=== PATIENT | male | born 1955 | race Caucasian/White ===

== ENCOUNTER 2017-01-15 15:52 | Inpatient (IN) | payer OTHER ==
[~2017-01-15] VITALS: Ht 180.3 cm; Wt 115.6 kg
[2017-01-15] MEDS ORDERED: SODIUM CHLORIDE FLUSH 10ML SYR IVF ONE (16:30)
[2017-01-15] MEDS ORDERED: IBUP-1484 PO (16:37)
[2017-01-15] MEDS ORDERED: NITROGLYCERIN SINGLE TAB 0.4 MG SL ONE (16:40)
[2017-01-15] MEDS: NITROGLYCERIN SINGLE TAB 0.4 MG SL PRN ×2 (16:55→17:01)
[2017-01-15 17:08] LABS: BLOOD UREA NITROGEN 16 mg/dL (7-18)
[2017-01-15 17:12] LABS: IS PT STATUS REG ER OR PRE ER? YES
[2017-01-15 17:19] LABS: HEMATOCRIT 49.4 % (39.2-51.8); HEMOGLOBIN 16.9 g/dL (13.7-18.0); WHITE BLOOD COUNT 11.5 x10^3/uL (3.4-10)
[2017-01-15] MEDS ORDERED: NITROGLYCERIN OINT 2%, 1GM TP ONE ×2 (17:22→17:30)
[2017-01-15] MEDS ORDERED: LABETALOL 5MG/ML, 20ML ONE (18:20)
[2017-01-15] MEDS ORDERED: ASPIRIN 81 MG TABLET CHEW ONE (18:21)
[2017-01-15] MEDS ORDERED: LABETALOL 5MG/ML, 20ML IVPush ONE (18:30)
[2017-01-15] MEDS ORDERED: morphine SULFATE 10 MG/ML, 1ML IV PRN (18:30)
[2017-01-15] MEDS ORDERED: ASPIRIN 81 MG TABLET CHEW PO ONE (18:30)
[2017-01-15] MEDS ORDERED: ONDANSETRON 2MG/ML, 2ML IVP PRN (18:30)
[2017-01-15] MEDS ORDERED: MORPHINE SULFATE 4 MG/ML, 1ML IVPush PRN (18:30)
[2017-01-15] MEDS ORDERED: NITROGLYCERIN 0.4 MG/SPRAY SL PRN (18:30)
[2017-01-15] MEDS ORDERED: NITROGLYCERIN 0.4 MG BOTTLE (25 TABS) SL PRN (18:30)
[2017-01-15] MEDS ORDERED: ASPIRIN 325 MG TABLET EC PO ONE (18:30)
[2017-01-15] MEDS ORDERED: ZOLPIDEM 5MG TABLET PO PRN (18:30)
[2017-01-15 19:04] LABS: IS PT STATUS REG ER OR PRE ER? YES
[2017-01-15] MEDS: ENALAPRILAT 1.25 MG/ML, 2ML IVPush PRN (20:32)
[2017-01-15] MEDS: SODIUM CHLORIDE FLUSH 10ML SYR IVF SCH ×2 (20:32)
[2017-01-15 20:34] VITALS: BP 194/101
[2017-01-15 20:48] VITALS: BP 176/89
[2017-01-15 21:45] VITALS: BP 159/82
[2017-01-15 22:00] LABS: IS PT STATUS REG ER OR PRE ER? NO
[2017-01-16] VITALS (9 sets, daily range): BP systolic 143–191; BP diastolic 75–121
[2017-01-16] MEDS: ACETAMINOPHEN 325 MG TABLET PO PRN ×2 (04:36→19:57)
[2017-01-16] MEDS: ASPIRIN 325 MG TABLET EC PO SCH (04:36)
[2017-01-16] MEDS ORDERED: REGADENOSON 0.4 MG/5 ML SYRINGE ONE (07:44)
[2017-01-16] MEDS: SODIUM CHLORIDE FLUSH 10ML SYR IVF SCH ×4 (08:34→19:57)
[2017-01-16] MEDS: PANTOPRAZOLE 40 MG IV IVPush SCH (08:34)
[2017-01-16] MEDS: ENALAPRILAT 1.25 MG/ML, 2ML IVPush PRN (12:35)
[2017-01-16] MEDS ORDERED: LABETALOL 5MG/ML, 20ML IVPush ONE (14:06)
[2017-01-16] MEDS: LABETALOL 200 MG TABLET PO SCH ×2 (14:47→22:21)
[2017-01-16] MEDS: LISINOPRIL 20 MG TABLET PO SCH ×2 (14:48→21:40)
[2017-01-16] MEDS: SODIUM CHLORIDE 0.9% 1,000 ML IV SCH (14:49)
[2017-01-16] MEDS ORDERED: LABETALOL 5MG/ML, 20ML IVPush STA (15:01)
[2017-01-16] MEDS: ENOXAPARIN 40 MG/0.4 ML SQ SCH (16:34)
[2017-01-17 01:23] VITALS: BP 135/85
[2017-01-17 03:50] VITALS: BP 96/52
[2017-01-17] MEDS: SODIUM CHLORIDE 0.9% 1,000 ML IV SCH ×2 (06:08→15:57)
[2017-01-17] MEDS: ASPIRIN 325 MG TABLET EC PO SCH (06:09)
[2017-01-17] MEDS: LABETALOL 200 MG TABLET PO SCH ×2 (06:09→15:57)
[2017-01-17 07:37] VITALS: BP 135/84
[2017-01-17] MEDS: PANTOPRAZOLE 40 MG IV IVPush SCH (08:31)
[2017-01-17] MEDS: SODIUM CHLORIDE FLUSH 10ML SYR IVF SCH ×4 (08:32→19:53)
[2017-01-17] MEDS: LISINOPRIL 20 MG TABLET PO SCH ×2 (08:32→19:54)
[2017-01-17] MEDS: ASPIRIN 81 MG TABLET CHEW PO SCH (09:00)
[2017-01-17] MEDS ORDERED: VERAPAMIL 2.5 MG/ML, 2ML ONE (12:48)
[2017-01-17] MEDS ORDERED: MIDAZOLAM 1 MG/ML, 5ML ONE (12:48)
[2017-01-17] MEDS ORDERED: FENTANYL PF 100 MCG/2ML ONE (12:48)
[2017-01-17] MEDS ORDERED: PRASUGREL 10 MG TABLET ONE (12:48)
[2017-01-17] MEDS ORDERED: LIDOCAINE 2%, 20ML ONE (12:49)
[2017-01-17] MEDS ORDERED: HEPARIN 1,000 UNITS/ML, 10ML ONE (12:49)
[2017-01-17] MEDS ORDERED: BIVALIRUDIN 250 MG ONE ×2 (12:49→14:53)
[2017-01-17 15:47] VITALS: BP 137/87
[2017-01-17] MEDS ORDERED: SODIUM CHLORIDE 0.9% 1,000 ML IV SCH (16:03)
[2017-01-17 19:11] VITALS: BP 133/86
[2017-01-17] MEDS: ENOXAPARIN 40 MG/0.4 ML SQ SCH (19:53)
[2017-01-18 00:02] VITALS: BP 130/74
[2017-01-18] MEDS: LABETALOL 200 MG TABLET PO SCH ×2 (00:04→06:33)
[2017-01-18 07:11] VITALS: BP 148/91
[2017-01-18] MEDS ORDERED: CHLORHEXIDINE MOUTHWASH 15 ML UDC MM PRN (07:30)
[2017-01-18] MEDS ORDERED: INSULIN ASPART 100 UNITS/ML, PEN SQ-INSULIN SCH (07:30)
[2017-01-18] MEDS: MUPIROCIN OINT 2%, 22GM TP SCH ×2 (07:39→21:22)
[2017-01-18 08:23] LABS: ASPARTATE AMINO TRANSFERASE 7 U/L (15-37); BLOOD UREA NITROGEN 18 mg/dL (7-18)
[2017-01-18] MEDS: PANTOPRAZOLE 40 MG IV IVPush SCH (08:32)
[2017-01-18] MEDS: ASPIRIN 81 MG TABLET CHEW PO SCH (08:32)
[2017-01-18] MEDS: SODIUM CHLORIDE FLUSH 10ML SYR IVF SCH ×6 (08:32→19:41)
[2017-01-18] MEDS: LISINOPRIL 20 MG TABLET PO SCH ×2 (08:33→19:40)
[2017-01-18 09:17] LABS: HEMATOCRIT 44.4 % (39.2-51.8); HEMOGLOBIN 14.8 g/dL (13.7-18.0); WHITE BLOOD COUNT 7.2 x10^3/uL (3.4-10)
[2017-01-18 14:34] VITALS: BP 143/85
[2017-01-18] MEDS ORDERED: LABETALOL 200 MG TABLET PO SCH (18:00)
[2017-01-18 19:29] VITALS: BP 160/81
[2017-01-18] MEDS: ENOXAPARIN 40 MG/0.4 ML SQ SCH (19:29)
[2017-01-19 00:46] VITALS: BP_SYST 131; BP_SYST 171; BP_DIAS 106; BP_DIAS 69
[2017-01-19] MEDS ORDERED: METOPROLOL TARTRATE 25 MG TABLET PO ONE (05:00)
[2017-01-19] MEDS: MUPIROCIN OINT 2%, 22GM TP SCH (05:11)
[2017-01-19 05:28] VITALS: BP_SYST 165; BP_SYST 174; BP_DIAS 93; BP_DIAS 95
[2017-01-19] MEDS ORDERED: MIDAZOLAM 1 MG/ML, 5ML ONE ×3 (07:13)
[2017-01-19] MEDS ORDERED: NITROGLYCERIN/D5W PMX 50 MG/250 ML ONE (07:13)
[2017-01-19] MEDS ORDERED: PROTAMINE SULFATE 10 MG/ML, 25ML ONE (07:13)
[2017-01-19] MEDS ORDERED: CALCIUM CHLORIDE 10%, 10ML SYR ONE (07:13)
[2017-01-19] MEDS ORDERED: AMIODARONE 50 MG/ML, 3ML ONE ×2 (07:13→11:35)
[2017-01-19] MEDS ORDERED: PROPOFOL 10 MG/ML, 20ML ONE (07:13)
[2017-01-19] MEDS ORDERED: ROCURONIUM 10 MG/ML ONE ×4 (07:13→09:12)
[2017-01-19] MEDS ORDERED: ALBUMIN HUMAN 5% 500 ML IV ONE (07:30)
[2017-01-19] MEDS ORDERED: SODIUM CHLORIDE 0.9% IV PRN (07:30)
[2017-01-19] MEDS ORDERED: PHENYLEPHRINE 10 MG in SODIUM CHLORIDE 0.9% 249 ML IV PRN ×2 (07:30→12:11)
[2017-01-19] MEDS ORDERED: MANNITOL PMX 20% 500 ML IVPB PRN (07:30)
[2017-01-19] MEDS ORDERED: DEXMEDETOMIDINE 200 MCG in SODIUM CHLORIDE 0.9% 48 ML IV SCH (07:30)
[2017-01-19] MEDS ORDERED: EPINEPHRINE 2 MG in SODIUM CHLORIDE 0.9% 248 ML IV SCH (07:30)
[2017-01-19] MEDS ORDERED: REGULAR INSULIN 62.5 UNITS in SODIUM CHLORIDE 0.9% 249.375 ML IV PRN ×2 (07:30→12:11)
[2017-01-19] MEDS ORDERED: CEFUROXIME 1.5 GM in SODIUM CHLORIDE 0.9% 50 ML IVPB PRN (07:30)
[2017-01-19] MEDS ORDERED: VANCOMYCIN 1,600 MG in SODIUM CHLORIDE 0.9% 250 ML IVPB PRN (07:30)
[2017-01-19] MEDS ORDERED: AMINOCAPROIC ACID IV PRN (07:30)
[2017-01-19] MEDS ORDERED: VANCOMYCIN 1,600 MG in SODIUM CHLORIDE 0.9% 250 ML IV PRN (07:30)
[2017-01-19] MEDS ORDERED: POTASSIUM CHLORIDE 80 MEQ, SODIUM BICARBONATE 8.4% 10 MEQ, MAGNESIUM SULFATE 0.5 GM, LI... IV PRN (07:30)
[2017-01-19] MEDS ORDERED: PAPAVERINE 30 MG/ML, 2ML IVPush ONE (08:12)
[2017-01-19] MEDS ORDERED: HEPARIN 1,000 UNITS/ML, 10ML IV ONE (08:13)
[2017-01-19] MEDS: ASPIRIN 81 MG TABLET CHEW PO SCH (09:00)
[2017-01-19] MEDS: LISINOPRIL 20 MG TABLET PO SCH ×2 (09:00→21:00)
[2017-01-19] MEDS ORDERED: MILRINONE 1 MG/ML, 10ML IV ONE (10:58)
[2017-01-19] MEDS ORDERED: THROMBIN 5,000 UNIT VIAL TP ONE (11:23)
[2017-01-19] MEDS ORDERED: LIDOCAINE 2% 100MG/5ML SYRINGE ONE (12:08)
[2017-01-19] MEDS ORDERED: HEPARIN 1,000 UNITS/ML, 30ML ONE (12:09)
[2017-01-19] MEDS ORDERED: ALBUMIN HUMAN 25% 50 ML ONE (12:09)
[2017-01-19] MEDS ORDERED: DOBUTAMINE 250 MG in SODIUM CHLORIDE 0.9% 230 ML IV PRN (12:11)
[2017-01-19] MEDS ORDERED: SODIUM CHLORIDE 0.9% 1,000 ML IV PRN (12:11)
[2017-01-19] MEDS ORDERED: DEXMEDETOMIDINE 200 MCG in SODIUM CHLORIDE 0.9% 48 ML IV PRN (12:11)
[2017-01-19] MEDS ORDERED: NITROGLYCERIN/D5W PMX 250 ML IV PRN (12:11)
[2017-01-19] MEDS ORDERED: ACETAMINOPHEN 650 MG SUPP PR PRN (12:30)
[2017-01-19] MEDS ORDERED: BISACODYL 10 MG SUPP PR PRN (12:30)
[2017-01-19] MEDS ORDERED: ACETAMINOPHEN 325 MG TABLET PO PRN (12:30)
[2017-01-19] MEDS ORDERED: GLUCAGON 1 MG IM PRN (12:30)
[2017-01-19] MEDS ORDERED: ONDANSETRON 2MG/ML, 2ML IVPush PRN (12:30)
[2017-01-19] MEDS ORDERED: BISACODYL 5 MG EC TABLET PO PRN (12:30)
[2017-01-19] MEDS ORDERED: PROCHLORPERAZINE 5 MG/ML, 2ML IVPush PRN (12:30)
[2017-01-19] MEDS ORDERED: EPINEPHRINE 2 MG in SODIUM CHLORIDE 0.9% 248 ML IV PRN (12:30)
[2017-01-19] MEDS ORDERED: SODIUM BICARB 8.4%, 50ML SYRINGE IV PRN (12:30)
[2017-01-19] MEDS ORDERED: LACTATED RINGERS 500 ML IVBOLUS PRN (12:30)
[2017-01-19] MEDS ORDERED: MEPERIDINE/PF 25MG/0.5ML IVPush PRN (12:30)
[2017-01-19] MEDS ORDERED: MIDAZOLAM 1 MG/ML, 5ML IVPush PRN (12:30)
[2017-01-19] MEDS ORDERED: INSULIN ASPART 100 UNITS/ML, PEN SQ-INSULIN PRN (12:30)
[2017-01-19] MEDS ORDERED: DEXTROSE 50%, 50ML SYRINGE IVPush PRN (12:30)
[2017-01-19] MEDS ORDERED: DEXTROSE 4 GM TAB.CHEW PO PRN (12:30)
[2017-01-19 12:45] LABS: ABG COLLECTION SITE ARTERIAL LINE
[2017-01-19 12:58] LABS: HEMATOCRIT 38.6 % (39.2-51.8); HEMOGLOBIN 13.4 g/dL (13.7-18.0)
[2017-01-19] MEDS: KSCALE TO 4.5 IV SCH ×2 (13:00→19:00)
[2017-01-19] MEDS: morphine SULFATE 10 MG/ML, 1ML IVPush PRN ×8 (13:14→23:50)
[2017-01-19] MEDS: EPINEPHRINE 2 MG in SODIUM CHLORIDE 0.9% 248 ML IV PRN ×3 (13:38→21:21)
[2017-01-19] MEDS: DEXMEDETOMIDINE 200 MCG in SODIUM CHLORIDE 0.9% 48 ML IV PRN ×2 (13:39→17:20)
[2017-01-19] MEDS: MAGNESIUM SULFATE 1 GM in SODIUM CHLORIDE 0.9% 50 ML IVPB SCH (15:29)
[2017-01-19] MEDS: CEFUROXIME 1.5 GM in SODIUM CHLORIDE 0.9% 50 ML IVPB SCH (18:48)
[2017-01-19 19:00] LABS: HEMATOCRIT 43.8 % (39.2-51.8)
[2017-01-19] MEDS: VANCOMYCIN 1,400 MG in SODIUM CHLORIDE 0.9% 250 ML IVPB SCH (19:31)
[2017-01-19] MEDS: MUPIROCIN OINT 2%, 22GM NAS SCH (21:00)
[2017-01-19] MEDS: DOCUSATE 100 MG CAPSULE PO SCH (21:00)
[2017-01-19] MEDS: SODIUM CHLORIDE FLUSH 10ML SYR IVF SCH (21:30)
[2017-01-20] MEDS: HYDROcodone/APAP 10/325 MG TABLET PO PRN ×4 (00:11→14:53)
[2017-01-20 00:46] LABS: HEMATOCRIT 41.9 % (39.2-51.8); HEMOGLOBIN 14.2 g/dL (13.7-18.0)
[2017-01-20] MEDS: morphine SULFATE 10 MG/ML, 1ML IVPush PRN ×3 (00:51→03:31)
[2017-01-20] MEDS: KSCALE TO 4.5 IV SCH ×3 (01:00→13:00)
[2017-01-20 04:42] LABS: ABG COLLECTION SITE ARTERIAL LINE
[2017-01-20 04:46] LABS: HEMATOCRIT 40.8 % (39.2-51.8); HEMOGLOBIN 13.6 g/dL (13.7-18.0); WHITE BLOOD COUNT 12.4 x10^3/uL (3.4-10)
[2017-01-20 04:55] LABS: BLOOD UREA NITROGEN 31 mg/dL (7-18)
[2017-01-20] MEDS: INSULIN ASPART 100 UNITS/ML, PEN SQ-INSULIN SCH ×5 (05:35→20:44)
[2017-01-20] MEDS: CEFUROXIME 1.5 GM in SODIUM CHLORIDE 0.9% 50 ML IVPB SCH (06:24)
[2017-01-20] MEDS ORDERED: FUROSEMIDE 20 MG/2 ML IV ONE ×2 (06:30→15:00)
[2017-01-20] MEDS: VANCOMYCIN 1,400 MG in SODIUM CHLORIDE 0.9% 250 ML IVPB SCH (08:14)
[2017-01-20] MEDS ORDERED: SODIUM POLYSTYRENE SULFONATE ORAL SUSP PO ONE (09:00)
[2017-01-20] MEDS: PANTOPRAZOLE 40 MG IV IVPush SCH (10:21)
[2017-01-20] MEDS: ASPIRIN 81 MG TABLET EC PO SCH (10:21)
[2017-01-20] MEDS: DOCUSATE 100 MG CAPSULE PO SCH ×2 (10:21→20:40)
[2017-01-20] MEDS: METOPROLOL TARTRATE 25 MG TABLET PO/NG SCH ×2 (10:21→20:27)
[2017-01-20] MEDS: MUPIROCIN OINT 2%, 22GM NAS SCH ×2 (10:22→20:29)
[2017-01-20] MEDS: SODIUM CHLORIDE FLUSH 10ML SYR IVF SCH ×2 (10:23→19:59)
[2017-01-20] MEDS: EPINEPHRINE 2 MG in SODIUM CHLORIDE 0.9% 248 ML IV PRN (10:34)
[2017-01-20] MEDS ORDERED: DEXTROSE 50%, 50ML SYRINGE IVPush ONE (11:00)
[2017-01-20] MEDS ORDERED: INSULIN REGULAR 100 UNITS/ML, 3ML VIAL IVPush ONE (11:00)
[2017-01-20] MEDS: CHLORHEXIDINE MOUTHWASH 15 ML UDC MM SCH ×2 (13:11→20:51)
[2017-01-20] MEDS: MAGNESIUM SULFATE 1 GM in SODIUM CHLORIDE 0.9% 50 ML IVPB SCH (13:11)
[2017-01-20 14:18] LABS: ABG COLLECTION SITE ARTERIAL LINE
[2017-01-20 18:19] LABS: ABG COLLECTION SITE RIGHT BRACHIAL
[2017-01-20] MEDS ORDERED: SODIUM BICARB 8.4%, 50ML SYRINGE IVPush ONE (19:30)
[2017-01-20] MEDS ORDERED: ALBUTEROL/IPRATROPIUM 2.5MG/0.5MG, 3 ML ONE (19:50)
[2017-01-20] MEDS: OXYcodone IR 5MG TABLET PO PRN (19:58)
[2017-01-20 21:05] LABS: ABG COLLECTION SITE RIGHT RADIAL; COLLATERAL CIRCULATION TESTING NORMAL
[2017-01-21] MEDS: INSULIN ASPART 100 UNITS/ML, PEN SQ-INSULIN SCH ×6 (02:41→20:00)
[2017-01-21] MEDS: HYDROcodone/APAP 10/325 MG TABLET PO PRN ×2 (02:45→08:41)
[2017-01-21 04:29] LABS: ABG COLLECTION SITE RIGHT RADIAL; COLLATERAL CIRCULATION TESTING NORMAL
[2017-01-21 04:43] LABS: BLOOD UREA NITROGEN 45 mg/dL (7-18)
[2017-01-21 04:51] LABS: HEMOGLOBIN 11.7 g/dL (13.7-18.0); WHITE BLOOD COUNT 8.7 x10^3/uL (3.4-10)
[2017-01-21 05:00] VITALS: BP 130/68
[2017-01-21] MEDS: OXYcodone IR 5MG TABLET PO PRN ×4 (06:24→17:16)
[2017-01-21] MEDS: MUPIROCIN OINT 2%, 22GM NAS SCH ×2 (08:41→20:12)
[2017-01-21] MEDS: DOCUSATE 100 MG CAPSULE PO SCH ×2 (08:41→20:11)
[2017-01-21] MEDS: PANTOPRAZOLE 40 MG IV IVPush SCH (08:42)
[2017-01-21] MEDS: ASPIRIN 81 MG TABLET EC PO SCH (08:42)
[2017-01-21] MEDS: SODIUM CHLORIDE FLUSH 10ML SYR IVF SCH ×2 (08:42→20:10)
[2017-01-21] MEDS: ENOXAPARIN 40 MG/0.4 ML SQ SCH (09:00)
[2017-01-21] MEDS ORDERED: POTASSIUM CHLORIDE 10 MEQ TABLET.ER PO SCH (09:00)
[2017-01-21] MEDS: FUROSEMIDE 20 MG/2 ML IV SCH (09:00)
[2017-01-21] MEDS: METOPROLOL TARTRATE 25 MG TABLET PO/NG SCH ×2 (10:40→20:11)
[2017-01-21] MEDS: CHLORHEXIDINE MOUTHWASH 15 ML UDC MM SCH ×2 (10:40→20:12)
[2017-01-21] MEDS: MAGNESIUM SULFATE 1 GM in SODIUM CHLORIDE 0.9% 50 ML IVPB SCH (13:21)
[2017-01-21 17:40] LABS: BLOOD UREA NITROGEN 48 mg/dL (7-18)
[2017-01-21] MEDS ORDERED: ALBUTEROL SULFATE 2.5 MG/3 ML NPPB PRN (18:00)
[2017-01-22 03:00] VITALS: BP 132/64
[2017-01-22] MEDS: INSULIN ASPART 100 UNITS/ML, PEN SQ-INSULIN SCH ×4 (03:35→12:00)
[2017-01-22 03:59] LABS: BLOOD UREA NITROGEN 49 mg/dL (7-18)
[2017-01-22] MEDS: HYDROcodone/APAP 10/325 MG TABLET PO PRN (04:51)
[2017-01-22 06:13] LABS: HEMATOCRIT 32.7 % (39.2-51.8); HEMOGLOBIN 11.1 g/dL (13.7-18.0); WHITE BLOOD COUNT 6.4 x10^3/uL (3.4-10)
[2017-01-22] MEDS ORDERED: SODIUM CHLORIDE 0.9%, 500ML IVBOLUS ONE (08:00)
[2017-01-22] MEDS ORDERED: LIDOCAINE 2%, 2ML ONE (08:58)
[2017-01-22] MEDS ORDERED: LIDOCAINE-MPF 1%, 2ML ONE (08:58)
[2017-01-22] MEDS: CLOPIDOGREL 75 MG TABLET PO SCH (09:15)
[2017-01-22] MEDS: PANTOPRAZOLE 40 MG IV IVPush SCH (09:15)
[2017-01-22] MEDS: MUPIROCIN OINT 2%, 22GM NAS SCH ×2 (09:15→21:00)
[2017-01-22] MEDS: ASPIRIN 81 MG TABLET EC PO SCH (09:15)
[2017-01-22] MEDS: SODIUM CHLORIDE FLUSH 10ML SYR IVF SCH ×3 (09:15→21:04)
[2017-01-22] MEDS: METOPROLOL TARTRATE 25 MG TABLET PO/NG SCH ×2 (09:15→21:00)
[2017-01-22] MEDS: DOCUSATE 100 MG CAPSULE PO SCH ×2 (09:15→21:00)
[2017-01-22] MEDS: FUROSEMIDE 20 MG/2 ML IV SCH (09:26)
[2017-01-22] MEDS ORDERED: MORPHINE SULFATE 4 MG/ML, 1ML IV PRN (10:00)
[2017-01-22] MEDS ORDERED: LIDOCAINE 1%, 20ML ONE (11:36)
[2017-01-22] MEDS: OXYcodone IR 5MG TABLET PO PRN ×2 (12:01→23:49)
[2017-01-22] MEDS ORDERED: ALBUTEROL SULFATE 2.5 MG/3 ML NPPB PRN (16:00)
[2017-01-22] MEDS ORDERED: BISACODYL 10 MG SUPP PR PRN (16:00)
[2017-01-22] MEDS ORDERED: PROCHLORPERAZINE 5 MG/ML, 2ML IVPush PRN (16:00)
[2017-01-22] MEDS ORDERED: SODIUM CHLORIDE 0.9% 1,000 ML IV PRN (16:00)
[2017-01-22] MEDS ORDERED: ONDANSETRON 2MG/ML, 2ML IVPush PRN (16:00)
[2017-01-22] MEDS ORDERED: DEXTROSE 50%, 50ML SYRINGE IVPush PRN (16:00)
[2017-01-22] MEDS ORDERED: GLUCAGON 1 MG IM PRN (16:00)
[2017-01-22] MEDS ORDERED: DEXTROSE 4 GM TAB.CHEW PO PRN (16:00)
[2017-01-22] MEDS ORDERED: ACETAMINOPHEN 650 MG SUPP PR PRN (16:00)
[2017-01-22] MEDS ORDERED: LACTATED RINGERS 500 ML IVBOLUS PRN (16:00)
[2017-01-22] MEDS ORDERED: ACETAMINOPHEN 325 MG TABLET PO PRN (16:00)
[2017-01-22] MEDS ORDERED: BISACODYL 5 MG EC TABLET PO PRN (16:00)
[2017-01-22] MEDS: ENOXAPARIN 40 MG/0.4 ML SQ SCH (18:17)
[2017-01-22] MEDS ORDERED: SODIUM CHLORIDE FLUSH 10ML SYR IVF SCH (21:00)
[2017-01-23 04:00] VITALS: BP 120/63
[2017-01-23 04:51] LABS: BLOOD UREA NITROGEN 45 mg/dL (7-18)
[2017-01-23] MEDS: SODIUM CHLORIDE FLUSH 10ML SYR IVF SCH ×4 (04:54→21:16)
[2017-01-23] MEDS: FUROSEMIDE 20 MG/2 ML IV SCH (08:17)
[2017-01-23] MEDS ORDERED: BISACODYL 10 MG SUPP PR PRN (09:00)
[2017-01-23] MEDS ORDERED: LACTULOSE 20 GM/30 ML UDC PO PRN (09:00)
[2017-01-23] MEDS: DOCUSATE 50 MG/5 ML, 10ML UDC NG SCH (09:00)
[2017-01-23] MEDS ORDERED: MAGNESIUM CITRATE 300ML ORAL SOL PO ONE (09:00)
[2017-01-23] MEDS: METOPROLOL TARTRATE 25 MG TABLET PO/NG SCH ×2 (09:39→21:18)
[2017-01-23] MEDS: DOCUSATE 100 MG CAPSULE PO SCH ×3 (09:39→21:17)
[2017-01-23] MEDS: CLOPIDOGREL 75 MG TABLET PO SCH (09:39)
[2017-01-23] MEDS: ASPIRIN 81 MG TABLET EC PO SCH (09:39)
[2017-01-23] MEDS: MUPIROCIN OINT 2%, 22GM NAS SCH ×2 (12:24→21:18)
[2017-01-23] MEDS: ENOXAPARIN 40 MG/0.4 ML SQ SCH (17:27)
[2017-01-23] MEDS: SENNA/DOCUSATE TABLET PO SCH (21:00)
[2017-01-23] MEDS ORDERED: SENNOSIDES 8.8 MG/5 ML ORAL SOL NG SCH (21:00)
[2017-01-24] MEDS: SODIUM CHLORIDE FLUSH 10ML SYR IVF SCH ×5 (04:47→20:35)
[2017-01-24 04:48] LABS: BLOOD UREA NITROGEN 36 mg/dL (7-18)
[2017-01-24] MEDS: METOPROLOL TARTRATE 25 MG TABLET PO/NG SCH ×2 (08:02→20:34)
[2017-01-24] MEDS: PANTOPROZOLE 40MG TABLET PO SCH (08:02)
[2017-01-24] MEDS: DOCUSATE 100 MG CAPSULE PO SCH ×2 (08:02→09:35)
[2017-01-24] MEDS: ASPIRIN 81 MG TABLET EC PO SCH (08:03)
[2017-01-24] MEDS: FUROSEMIDE 20 MG/2 ML IV SCH (08:03)
[2017-01-24] MEDS: HYDROcodone/APAP 10/325 MG TABLET PO PRN (08:03)
[2017-01-24] MEDS: CLOPIDOGREL 75 MG TABLET PO SCH (08:03)
[2017-01-24] MEDS: MUPIROCIN OINT 2%, 22GM NAS SCH ×2 (08:04→20:34)
[2017-01-24] MEDS ORDERED: MAGNESIUM HYDROXIDE 8%, 30ML UDC PO PRN (09:30)
[2017-01-24] MEDS: DOCUSATE 50 MG/5 ML, 10ML UDC NG SCH (09:35)
[2017-01-24] MEDS: LISINOPRIL 5 MG TABLET PO SCH (14:25)
[2017-01-24 18:41] VITALS: BP 180/76
[2017-01-24] MEDS: SIMVASTATIN 40 MG TABLET PO SCH (20:34)
[2017-01-24] MEDS: SENNA/DOCUSATE TABLET PO SCH (20:35)
[2017-01-24] MEDS: ENOXAPARIN 40 MG/0.4 ML SQ SCH (20:36)
[2017-01-25] VITALS (7 sets, daily range): BP systolic 155–182; BP diastolic 78–100
[2017-01-25] MEDS: ZOLPIDEM 5MG TABLET PO PRN ×2 (00:09→21:59)
[2017-01-25 05:34] LABS: BLOOD UREA NITROGEN 30 mg/dL (7-18)
[2017-01-25] MEDS: HYDROcodone/APAP 10/325 MG TABLET PO PRN ×2 (06:38→15:48)
[2017-01-25] MEDS: LISINOPRIL 5 MG TABLET PO SCH (08:00)
[2017-01-25] MEDS: PANTOPROZOLE 40MG TABLET PO SCH (08:00)
[2017-01-25] MEDS: CLOPIDOGREL 75 MG TABLET PO SCH (08:00)
[2017-01-25] MEDS: DOCUSATE 100 MG CAPSULE PO SCH (08:00)
[2017-01-25] MEDS: METOPROLOL TARTRATE 25 MG TABLET PO/NG SCH ×2 (08:00→19:26)
[2017-01-25] MEDS: ASPIRIN 81 MG TABLET EC PO SCH (08:00)
[2017-01-25] MEDS: MUPIROCIN OINT 2%, 22GM NAS SCH ×2 (08:01→19:27)
[2017-01-25] MEDS: SODIUM CHLORIDE FLUSH 10ML SYR IVF SCH ×4 (08:01→19:27)
[2017-01-25] MEDS: FUROSEMIDE 20 MG/2 ML IV SCH (08:01)
[2017-01-25] MEDS: LISINOPRIL 10 MG TABLET PO SCH ×2 (09:00→19:27)
[2017-01-25] MEDS: SIMVASTATIN 40 MG TABLET PO SCH (19:26)
[2017-01-25] MEDS: ENOXAPARIN 40 MG/0.4 ML SQ SCH (19:27)
[2017-01-26] MEDS ORDERED: AMIODARONE 150 MG in DEXTROSE 5% 100 ML IV ONE (02:00)
[2017-01-26] MEDS ORDERED: FILTER 0.22 MICRON IV PRN (02:00)
[2017-01-26] MEDS ORDERED: AMIODARONE 900 MG in DEXTROSE 5% 482 ML IV PRN (02:00)
[2017-01-26 02:21] LABS: BLOOD UREA NITROGEN 28 mg/dL (7-18)
[2017-01-26 02:30] VITALS: BP 126/76
[2017-01-26] MEDS: HYDROcodone/APAP 10/325 MG TABLET PO PRN ×3 (06:09→18:43)
[2017-01-26] MEDS: PANTOPROZOLE 40MG TABLET PO SCH (08:03)
[2017-01-26] MEDS: CLOPIDOGREL 75 MG TABLET PO SCH (08:04)
[2017-01-26] MEDS: METOPROLOL TARTRATE 25 MG TABLET PO/NG SCH ×2 (08:05→21:03)
[2017-01-26] MEDS: ASPIRIN 81 MG TABLET EC PO SCH (08:05)
[2017-01-26 08:09] VITALS: BP 135/75
[2017-01-26] MEDS: SODIUM CHLORIDE FLUSH 10ML SYR IVF SCH ×3 (08:12→21:02)
[2017-01-26] MEDS: DOCUSATE 100 MG CAPSULE PO SCH (08:12)
[2017-01-26] MEDS: FUROSEMIDE 20 MG/2 ML IV SCH (08:12)
[2017-01-26] MEDS: LISINOPRIL 10 MG TABLET PO SCH ×2 (08:22→21:03)
[2017-01-26] MEDS: MUPIROCIN OINT 2%, 22GM NAS SCH (11:16)
[2017-01-26] MEDS ORDERED: PNEUMOCOCCAL 23 VACCINE IM-VACC ONE (12:00)
[2017-01-26] MEDS ORDERED: FLU VACC QS2017-18 (36MOS+) UP/PF 0.5 ML IM-VACC ONE (12:00)
[2017-01-26 13:50] VITALS: BP 133/73
[2017-01-26 19:28] VITALS: BP 160/81
[2017-01-26] MEDS: AMIODARONE 200 MG TABLET PO SCH (21:02)
[2017-01-26] MEDS: SIMVASTATIN 40 MG TABLET PO SCH (21:03)
[2017-01-26] MEDS: ENOXAPARIN 40 MG/0.4 ML SQ SCH (21:04)
[2017-01-26 22:00] VITALS: BP 165/100
[2017-01-26] MEDS: ZOLPIDEM 5MG TABLET PO PRN (23:36)
[2017-01-27 00:59] VITALS: BP 165/100
[2017-01-27] MEDS: ZOLPIDEM 5MG TABLET PO PRN (03:35)
[2017-01-27 06:09] LABS: BLOOD UREA NITROGEN 21 mg/dL (7-18)
[2017-01-27 08:30] VITALS: BP 171/96
[2017-01-27] MEDS: PANTOPROZOLE 40MG TABLET PO SCH (08:36)
[2017-01-27] MEDS: METOPROLOL TARTRATE 25 MG TABLET PO/NG SCH ×2 (08:37→20:29)
[2017-01-27] MEDS: FUROSEMIDE 20 MG/2 ML IV SCH (08:37)
[2017-01-27] MEDS: AMIODARONE 200 MG TABLET PO SCH (08:37)
[2017-01-27] MEDS: LISINOPRIL 10 MG TABLET PO SCH ×2 (08:38→20:30)
[2017-01-27] MEDS: ASPIRIN 81 MG TABLET EC PO SCH (08:38)
[2017-01-27] MEDS: DOCUSATE 100 MG CAPSULE PO SCH (08:38)
[2017-01-27] MEDS: CLOPIDOGREL 75 MG TABLET PO SCH (08:38)
[2017-01-27] MEDS: SODIUM CHLORIDE FLUSH 10ML SYR IVF SCH ×2 (08:39→20:35)
[2017-01-27] MEDS: AMLODIPINE 5 MG TABLET PO SCH (11:00)
[2017-01-27 13:40] VITALS: BP 168/83
[2017-01-27 19:41] VITALS: BP 170/73
[2017-01-27] MEDS: ENOXAPARIN 40 MG/0.4 ML SQ SCH (20:29)
[2017-01-27] MEDS: SIMVASTATIN 40 MG TABLET PO SCH (20:29)
[2017-01-27 22:00] VITALS: BP 170/73
[2017-01-28 00:59] VITALS: BP 165/86
[2017-01-28] MEDS: HYDROcodone/APAP 10/325 MG TABLET PO PRN (06:10)
[2017-01-28 06:18] VITALS: BP 165/90
[2017-01-28 06:31] LABS: BLOOD UREA NITROGEN 19 mg/dL (7-18)
[2017-01-28 06:55] VITALS: BP 136/85
[2017-01-28] MEDS ORDERED: FURO-93 PO (08:25)
[2017-01-28] MEDS ORDERED: PANT40TA5 PO (08:25)
[2017-01-28] MEDS ORDERED: POTA10TA6 PO (08:25)
[2017-01-28] MEDS ORDERED: SIMV40TA3 PO (08:25)
[2017-01-28] MEDS ORDERED: CLOP75TA PO (08:25)
[2017-01-28] MEDS ORDERED: LISI-167 PO (08:25)
[2017-01-28] MEDS ORDERED: METO25TA35 PO/NG (08:25)
[2017-01-28] MEDS ORDERED: AMLO5TAB2 PO (08:25)
[2017-01-28] MEDS ORDERED: ZOLP5TAB PO (08:25)
[2017-01-28] MEDS ORDERED: DOCU-131 PO (08:25)
[2017-01-28] MEDS ORDERED: ASPI-621 PO (08:25)
[2017-01-28] MEDS ORDERED: HYDR-3307 PO (08:25)
[2017-01-28] MEDS: PANTOPROZOLE 40MG TABLET PO SCH (08:44)
[2017-01-28] MEDS: LISINOPRIL 10 MG TABLET PO SCH (08:44)
[2017-01-28] MEDS: AMLODIPINE 5 MG TABLET PO SCH (08:44)
[2017-01-28] MEDS: CLOPIDOGREL 75 MG TABLET PO SCH (08:44)
[2017-01-28] MEDS: FUROSEMIDE 20 MG/2 ML IV SCH (08:45)
[2017-01-28] MEDS: ASPIRIN 81 MG TABLET EC PO SCH (08:45)
[2017-01-28] MEDS: METOPROLOL TARTRATE 25 MG TABLET PO/NG SCH (08:45)
[2017-01-28] MEDS: SODIUM CHLORIDE FLUSH 10ML SYR IVF SCH (08:45)
[2017-01-28] MEDS: DOCUSATE 100 MG CAPSULE PO SCH (08:45)
== END 2017-01-28 15:07 | disposition home or self-care (01) | DRG 233 ==
LOC: ED 18:49 → EDIP 18:50 → 5SO 20:13 → CCU 01-19 10:02 → 5SO 01-24 18:30
PROVIDERS: ADMIT Internal Medicine; ATTEND Family Medicine
PROC: 4A023N7 Measurement of Cardiac Sampling and Pressure, Left Heart, Percutaneous Approach (ICD-10-PCS; 2017-01-17)
PROC: B2111ZZ Fluoroscopy of Multiple Coronary Arteries using Low Osmolar Contrast (ICD-10-PCS; 2017-01-17)
PROC: B2151ZZ Fluoroscopy of Left Heart using Low Osmolar Contrast (ICD-10-PCS; 2017-01-17)
PROC: 021109W Bypass Coronary Artery, Two Arteries from Aorta with Autologous Venous Tissue, Open Approach (ICD-10-PCS; 2017-01-19)
PROC: 06BP4ZZ Excision of Right Saphenous Vein, Percutaneous Endoscopic Approach (ICD-10-PCS; 2017-01-19)
PROC: 06BQ4ZZ Excision of Left Saphenous Vein, Percutaneous Endoscopic Approach (ICD-10-PCS; 2017-01-19)
PROC: 5A1221Z Performance of Cardiac Output, Continuous (ICD-10-PCS; 2017-01-19)
PROC: 02100Z9 Bypass Coronary Artery, One Artery from Left Internal Mammary, Open Approach (ICD-10-PCS; principal; 2017-01-19 07:30)
PROC: 30233R1 Transfusion of Nonautologous Platelets into Peripheral Vein, Percutaneous Approach (ICD-10-PCS; 2017-01-22)
PROC: 0W9B30Z Drainage of Left Pleural Cavity with Drainage Device, Percutaneous Approach (ICD-10-PCS; 2017-01-22)
DX: I25.10 Atherosclerotic heart disease of native coronary artery without angina pectoris (principal); J96.00 Acute respiratory failure, unspecified whether with hypoxia or hypercapnia; N17.0 Acute kidney failure with tubular necrosis; I47.2 Ventricular tachycardia; J18.9 Pneumonia, unspecified organism; Z99.11 Dependence on respirator [ventilator] status; T79.7XXA Traumatic subcutaneous emphysema, initial encounter; J93.9 Pneumothorax, unspecified; E87.2 Acidosis; I48.91 Unspecified atrial fibrillation; I25.82 Chronic total occlusion of coronary artery; I16.0 Hypertensive urgency; E66.9 Obesity, unspecified; E78.5 Hyperlipidemia, unspecified; E87.5 Hyperkalemia; F17.210 Nicotine dependence, cigarettes, uncomplicated; I10 Essential (primary) hypertension; I25.2 Old myocardial infarction; I25.5 Ischemic cardiomyopathy; I77.819 Aortic ectasia, unspecified site; Z82.49 Family history of ischemic heart disease and other diseases of the circulatory system; Z83.3 Family history of diabetes mellitus; Z95.1 Presence of aortocoronary bypass graft
CPT/HCPCS: 32551; 32557; 36415; 36600; 71010; 71020; 78452; 80048; 80053; 80061; 81001; 82040; 82330; 82800; 82803; 82810; 82947; 82962; 83036; 83735; 84132; 84295; 84484; 85014; 85018; 85025; 85049; 85347; 85379; 85610; 85730; 86850; 86900; 86923; 87040; 87081; 87086; 87205; 90686; 90732; 93005; 93306; 93312; 93321; 93325; 93458; 93567; 93880; 93970; 94002; 94003; 94150; 96374; 99156; C1769; C1894; J0583; J0697; J1644; J1650; J1815; J2250; J2260; J2405; J2704; J2720; J2785; J3010; J3370; J3475; J3480; J3490; P9045; P9047; A9502; C1729; C1751; C1762; C9113; C9898; J0171; J0282; J1940; J2270; J2370; J2440; J7030; J7040; J7050; J7060; P9035; Q9967

== ENCOUNTER → 2017-02-01 | Outpatient (CLI) | payer OTHER ==
[~2017-02-01] MED LIST: AMLO5TAB2 PO; ASPI-621 PO; CLOP75TA PO; DOCU-131 PO; FURO-93 PO; HYDR-3307 PO; IBUP-1484 PO; LISI-167 PO; METO25TA35 PO/NG; PANT40TA5 PO; POTA10TA6 PO; SIMV40TA3 PO; ZOLP5TAB PO
== END | disposition home or self-care (01) ==
LOC: CFH 14:47
PROVIDERS: ATTEND Nurse Practitioner
DX: J90 Pleural effusion, not elsewhere classified (principal); T79.7XXA Traumatic subcutaneous emphysema, initial encounter; X58.XXXA Exposure to other specified factors, initial encounter
CPT/HCPCS: 71020

== ENCOUNTER 2020-09-06 10:09 | Emergency (ER) | payer MEDICARE ==
[~2020-09-06] VITALS: Ht 180.3 cm; Wt 113.5 kg
[~2020-09-06 10:09] MED LIST changes: +AMLO-150 PO; -AMLO5TAB2 PO; -ASPI-621 PO; +ASPI81TA45 PO; +HYDR-3248 PO; -HYDR-3307 PO; -IBUP-1484 PO; +IBUP-1902 PO; -PANT40TA5 PO; +PANT40TA6 PO; +SIMV40TA20 PO; -SIMV40TA3 PO
[2020-09-06 10:24] VITALS: BP 147/88
[2020-09-06] MEDS ORDERED: LIDOCAINE 2%, 20ML SQ ONE (11:00)
[2020-09-06] MEDS ORDERED: DIPH,PERTUSS(ACELL),TET VAC/PF 0.5 ML IM-VACC ONE ×2 (11:00→11:05)
[2020-09-06] MEDS ORDERED: LIDOCAINE-MPF 2% ,5ML ONE (11:05)
[2020-09-06] MEDS ORDERED: NEOSPORIN OINT. PKT 1 PACKET ONE (11:51)
== END 2020-09-06 11:58 | disposition home or self-care (01) ==
LOC: ED 11:32
DX: S01.412A Laceration without foreign body of left cheek and temporomandibular area, initial encounter (principal); S61.411A Laceration without foreign body of right hand, initial encounter; I10 Essential (primary) hypertension; F17.200 Nicotine dependence, unspecified, uncomplicated; Y04.0XXA Assault by unarmed brawl or fight, initial encounter; Y93.89 Activity, other specified; Y92.009 Unspecified place in unspecified non-institutional (private) residence as the place of occurrence of the external cause; Y99.8 Other external cause status
CPT/HCPCS: 12001; 12011; 90471; 90715

== ENCOUNTER 2020-09-18 10:18 | Emergency (ER) | payer MEDICARE ==
[~2020-09-18] VITALS: Ht 180.3 cm; Wt 112.1 kg
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
--- NOTE | 2020-09-18 10:38 | NUR ---
DR DENTON (RESIDENT) AT BS FOR EXAM.
[2020-09-18 10:44] VITALS: BP 166/89
--- NOTE | 2020-09-18 11:13 | NUR ---
ALL SUTURES REMOVED BY DR DENTON. STERI-STRIPS APPLIED. STERI-STRIP AND WOUND CARE DISCUSSED W/ PT; UNDERSTANDING VERBALIZED.
[2020-09-18] MEDS ORDERED: ATOR40TA78 PO (11:16)
== END 2020-09-18 11:27 | disposition home or self-care (01) ==
LOC: ED 11:26
DX: S61.511D Laceration without foreign body of right wrist, subsequent encounter (principal); F17.200 Nicotine dependence, unspecified, uncomplicated; X58.XXXD Exposure to other specified factors, subsequent encounter
CPT/HCPCS: 99281